=== PATIENT | male | born 1955 | race Caucasian/White ===

== ENCOUNTER → 2017-12-03 | Outpatient (CLI) | payer OTHER ==
[~2017-12-03] MED LIST: ASPI81TA50 PO; ATOR40TA59 PO; CARV25TA2 PO; CHOL4POW2 PO; CLON0.5T11 PO; CYAN10005 PO; DOCU-109 PO; FOLI1TAB16 PO; HYDR-2762 PO; METH-38 PO; OMEG1CAP6 PO; OMEP40CA5 PO; POTA10TA12 PO; PYRI100T PO; RAMI10CA PO; SERT25TA PO; UBID100C26 PO
[2017-12-03 11:51] LABS: BASO % 1 % (0-3); EOS # 0.1 x10^3/uL (0.0-0.7); EOS % 2 % (0-3); HEMATOCRIT 42.3 % (39.0-53.0); HEMOGLOBIN 14.7 g/dL (13.0-17.5); LYMPH % 27 % (24-48); MEAN CORPUSCULAR HEMOGLOBIN 32 pg (25-35); MEAN CORPUSCULAR HGB CONC 35 g/dL (31-37); MEAN CORPUSCULAR VOLUME 91 fL (79-100); MONO # 0.4 x10^3/uL (0.0-1.1); MONO % 10 % (0-9); NEUT # 2.2 x10^3uL (1.8-7.7); NEUT % 60 % (31-73); PLATELET COUNT 164 x10^3/uL (140-400); RED BLOOD COUNT 4.63 x10^6/uL (4.30-5.70); RED CELL DISTRIBUTION WIDTH 14.1 % (11.5-14.5); WHITE BLOOD COUNT 3.7 x10^3/uL (4.0-11.0)
[2017-12-03 12:28] LABS: ALBUMIN/GLOBULIN RATIO 1.1 (1.0-1.7); CALCIUM 8.5 mg/dL (8.5-10.1); CREATININE 1.1 mg/dL (0.7-1.3); GFR 67.8; POTASSIUM 4.1 mmol/L (3.5-5.1); TOTAL BILIRUBIN 0.8 mg/dL (0.2-1.0); TOTAL PROTEIN 7.7 g/dL (6.4-8.2)
== END | disposition home or self-care (01) ==
LOC: SURGPAT 10:25
PROVIDERS: ATTEND Neurological Surgery
DX: Z01.818 Encounter for other preprocedural examination (principal); M48.062 Spinal stenosis, lumbar region with neurogenic claudication
CPT/HCPCS: 36415; 80053; 85025; 87641

== ENCOUNTER → 2017-12-09 | Day surgery (SDC) | payer OTHER ==
--- NOTE | 2017-12-08 13:29 | HP ---
ADMIT DATE: 12/09/2017 DATE OF SURGERY: 12/09/2017 HISTORY OF PRESENT ILLNESS: The patient is a pleasant 62-year-old who is having difficulty with low back pain and pain which radiates in his posterior thighs and legs. He also noticed his right hip pain. The right side, he says feels worse than the left. This problem has been present for several years, but has gotten worse over the last 2 years. He has had his hips evaluated, had been told that there is no significant problem with them. He rates his pain as a 5/10. Lifting and/or walking distances increase his pain. Acupuncture has been tried which has not been helpful. He has undergone pain management including epidural steroid injections, which gave him no lasting relief. A few years ago, he underwent physical therapy for this problem and has not had any lasting relief. He takes Quapaw 5 for pain. PAST MEDICAL HISTORY: Heart attack/ failure, pacemaker trauma. PAST SURGICAL HISTORY: Bilateral inguinal hernia 2007, AICD placement in 2009, ablation and AFib 2010, penile implant 2016, cholecystectomy in 2011. FAMILY HISTORY: Aneurysm, cancer, heart problems and disease. SOCIAL HISTORY: [employer] teacher, retired. . Exercises weekly. Denies substance abuse. Denies tobacco use. Quit smoking greater than 10 years ago. Drinks alcohol 2 drinks daily. ALLERGIES: No known allergies. CURRENT MEDICATIONS: Ramipril, carvedilol, omeprazole, potassium chloride, atorvastatin, sertraline, clonazepam, cholestyramine, folic acid, fish oil, vitamin B6, vitamin B12, CoQ10, aspirin and Quapaw. REVIEW OF SYSTEMS: A 12-point review of systems was obtained and is noncontributory except for that mentioned above. PHYSICAL EXAMINATION: NEUROSURGERY EXAMINATION: GENERAL APPEARANCE: Alert, pleasant, no acute distress. HEAD: Normocephalic and atraumatic. SKIN: Warm and dry. MUSCULOSKELETAL: Lumbar paraspinal muscle bulk is normal, restricted range of motion of the lumbar spine, [id number] tenderness of the lower lumbar spine with palpation, normal range of motion of the lower extremities bilaterally. EXTREMITIES: No clubbing, cyanosis or edema. NEUROLOGIC: Alert and oriented x 3, normal recent and remote memory, strength 5/5 in bilateral lower extremities. Sensory was intact to light touch in bilateral lower extremities. Reflexes are present and symmetric in lower extremities bilaterally, negative straight leg raising bilaterally, normal gait. IMAGING: I reviewed a lumbar myelogram. On that study, there is severe lumbar spinal stenosis seen at L3-L4 and L4-L5. ASSESSMENT/PLAN: I believe the patient has symptomatic lumbar spinal stenosis. I have recommended a 2-level bilateral lumbar microdecompressive operation to decompress the dura and nerve roots at these sites. I spoke with him about the technique of surgery using models. I discussed the risks of surgery including nerve injury and infection. I spoke about the expected postoperative course. He understands. He would like to go ahead. We will make the arrangements. LUIS EDUARDO SLADE MD DR: ELOISA/judy JOB#: [id number] / [id number] KALINA
[~2017-12-09] VITALS: Ht 182.9 cm; Wt 96.6 kg
[~2017-12-09] MED LIST changes: +BACITRACIN 50,000 UNIT in IV NORMAL SALINE 1000ML BAG 1,000 ML IRR ONE; +BUPIVAC MPF-EPI 0.5%-1:200000 30 ML VIAL. INJ ONE; +DESFLURANE > 120 MINUTES IH ONE; +DEXAMETHASONE SOD PHOS 20 MG/5 ML VIAL. ONE; +ETOMIDATE 20 MG/10 ML VIAL. IV ONE; +GELATIN SPONGE SIZE 100. ONE; +GLYCOPYRROLATE 1 MG/5 ML VIAL. ONE; +HYDROcodone/APAP 7.5/325MG 1 TAB TABLET PO PRN; +IV RINGERS,LACTATED 1000ML 1,000 ML IV SCH; +KETOROLAC 60 MG/2 ML INJ FOR OR. ONE; +LIDOCAINE 1% PF 2 ML VIAL. ID PRN; +MIDAZOLAM HCL/PF 2 MG/2 ML VIAL. ONE; +NEOSTIGMINE METHYLSULFATE 5 MG/5 ML SYRINGE. ONE; +ONDANSETRON PF 4 MG/2 ML VIAL. IV PRN; +ONDANSETRON PF 4 MG/2 ML VIAL. ONE; +PHENYLEPHRINE 10 MG/ML VIAL. ONE; +PROCHLORPERAZINE 10 MG/2 ML VIAL. IV PRN; +PROPOFOL 50 ML IV ONE; +REMIFENTANIL 1 MG VIAL. IV ONE; +ROCURONIUM 50 MG/5 ML VIAL. ONE; +SCOPOLAMINE 1.5MG PATCH. TD SCH; +THROMBIN TOPICAL 20,000 UNIT SPRAY.SYRN KIT TP ONE; +VANCOMYCIN 1GM IVPB FOR OMNI 250 ML IV ONE; +ePHEDrine PF IN SALINE 50 MG/5 ML DISP.SYRIN IV ONE; +fentaNYL PF VIAL 100 MCG/2 ML VIAL IV PRN; +fentaNYL PF VIAL 100 MCG/2 ML VIAL ONE
--- NOTE | 2017-12-09 12:16 | DISCH ---
DISCHARGE INSTRUCTIONS Condition on Discharge Condition on Discharge: Stable Activity After Discharge Activity Instructions for Disc: Activity as tolerated, Avoid exertion Other activity instructions: no driving for a week Bathing Instructions: Shower-keep dressing dry Lifting Instructions after Dis: No heavy lifting, No pulling or pushing, Do not lift >10 pounds Diet after Discharge Additional Diet Restrictions: resume home diet Wound Incision Care Wound/Incision Care: Ice to area for comfort Other wound/incision instructi: may remove dressing in 48 hrs if dry then may shower- no soaking Contacting the after DC Call your doctor for: Concerns you may have Follow-Up Follow up with: Dr. Slade's nurse in 2 weeks [phone] LUIS EDUARDO SLADE MD Dec 09, 2017 12:16
[2017-12-09] MEDS: fentaNYL PF VIAL 100 MCG/2 ML VIAL IV PRN ×2 (12:27→12:39)
--- NOTE | 2017-12-09 12:38 | OP ---
DATE OF SURGERY: PREOPERATIVE DIAGNOSES: Severe lumbar spinal stenosis from disk bulging and hypertrophic facet and ligament L3-L4 and L4-L5. POSTOPERATIVE DIAGNOSES: Severe lumbar spinal stenosis from disk bulging and hypertrophic facet and ligament L3-L4 and L4-L5. OPERATION PERFORMED: 1. Bilateral hemilaminotomies L3-L4, L4-L5 with decompression of dura and nerve root. 2. Lumbar microdiskectomy, right L3-L4, in which a large disk fragment was removed in bilateral L4-L5. The operation was done with EMG monitoring, fluoroscopy and microscopic dissection. RUBBER LINER: SUMI Mendenhall assisted with the surgery. She assisted with the exposure, the multilevel microdecompression as well as the closure. OPERATIVE INDICATIONS: The patient is a very pleasant 62-year-old man who had developed problems with back and bilateral leg pain. He failed conservative measures, which included acupuncture and epidural steroid injections as well as physical therapy. He had the above-mentioned findings and imaging studies, and I recommended lumbar microsurgery. I spoke about the surgery, the risks, technique and expected postoperative course, and he wished to go ahead. DESCRIPTION OF PROCEDURE: Following general endotracheal anesthesia, the patient was positioned prone on the Bhargav frame. His lumbar region was prepped and draped in standard fashion. MARÍA ELENA hose and AV impulse boots were applied for DVT prophylaxis. The microscope was draped. Fluoroscopy was draped and brought in the field. Vancomycin 1 gram was given and fluoroscopic guidance, incision was made from L3-L5. I dissected down the skin and subcutaneous tissue, reflected the paraspinal muscles first in the left and brought in the microscope. Using the high speed air drill, beginning at L3-L4, I burred down a generous hemilaminotomy. I palpated the disk, it was bulging posteriorly, but was very firm and no diskectomy was warranted. In the operation, I drilled away the thickened bone, creating an exposure. I performed a partial foraminotomy. I then gently peeled back from medial to lateral ligamentum flavum and then trimmed it laterally lateral to the lateral edge of the dura. I gently dissected down large epidural veins and I coagulated. I was gently able to retract the root medially and palpated the disk. I did use small amounts of bone wax, and hemostasis was excellent. I then moved the retractors down to L4-L5, again confirmed my position fluoroscopically, again burred down a generous hemilaminotomy. Through the microscope with microscopic technique, I trimmed away the thickened ligamentum flavum, and I again performed a partial foraminotomy at this level. With retraction medially, there was a large soft disk, and I incised the ligament and annulus, and I performed a diskectomy with pituitary rongeurs, removed multiple small fragments gradually. The significant posterior bulging was markedly decreased. I irrigated copiously. I had excellent hemostasis and explored carefully. There were no retained fragments. I then went to the right side in a similar fashion at L3-L4. I drilled a generous hemilaminotomy after created an exposure and placing a self-retaining retractor. I performed a partial foraminotomy, gently retracted the root medially. There was significant bulging of very soft disk, and I incised the annulus and removed a very large single disk fragment, which markedly decompressed the entire region. I continued my diskectomy until I had an excellent diskectomy completed. Again, I explored carefully, the area was very well decompressed. I again used small amounts of bone wax as well as bipolar cautery, again performing a generous partial foraminotomy. I then went down to L4-L5 and in a similar fashion created an exposure by drilling the lamina over the ligamentum flavum, peeling away the ligamentum flavum, creating a partial foraminotomy and again gently retracting the root medially. There was again significant posterior disk bulging, which was soft, and again, I performed a diskectomy with pituitary rongeurs and fully decompressed this region. I did use the bipolar cautery. I did use bone wax where necessary. Hemostasis was excellent. There was no significant firing with the EMG monitoring throughout the case other than a few small burst during the time I was drilling and not even visualizing the nerve roots. I irrigated again copiously the entire wound. After removing the retractor, obtained excellent hemostasis in the muscle, closed the wound in layers with absorbable suture. Skin was closed with 4-0 subcuticular stitch. The operation went very well, and the patient was taken to the recovery room in excellent condition. I was quite pleased with the surgery. LUIS EDUARDO SLADE MD DR: ELOISA/judy JOB#: [id number] / [id number]
[2017-12-09 13:28] VITALS: BP 113/69
== END ==
LOC: SURG 06:59 → EDUNIT# 08:30
PROVIDERS: ATTEND Neurological Surgery
DX: M51.26 Other intervertebral disc displacement, lumbar region (principal); M48.062 Spinal stenosis, lumbar region with neurogenic claudication; I25.2 Old myocardial infarction; E78.00 Pure hypercholesterolemia, unspecified; K21.9 Gastro-esophageal reflux disease without esophagitis; F32.9 Major depressive disorder, single episode, unspecified; F41.9 Anxiety disorder, unspecified; F17.210 Nicotine dependence, cigarettes, uncomplicated; Z86.73 Personal history of transient ischemic attack (TIA), and cerebral infarction without residual deficits; Z95.0 Presence of cardiac pacemaker; Z95.810 Presence of automatic (implantable) cardiac defibrillator; I10 Essential (primary) hypertension; Z90.49 Acquired absence of other specified parts of digestive tract; Z98.890 Other specified postprocedural states; Z98.52 Vasectomy status; Z87.39 Personal history of other diseases of the musculoskeletal system and connective tissue; Z79.82 Long term (current) use of aspirin; Z79.899 Other long term (current) drug therapy
CPT/HCPCS: 63030; 63035; 76000; 97162; 97530; G8978; G8979; G8980; J1100; J1885; J2250; J2405; J2704; J2710; J3010; J3370; J3490; J7030; A7015